=== PATIENT | male | born 1985 | race Caucasian/White ===

== ENCOUNTER 2019-07-15 15:30 | Emergency (ER) | payer SELFPAY ==
[~2019-07-15] VITALS: Ht 170.2 cm; Wt 77.1 kg
[~2019-07-15 15:30] MED LIST: ACET-2634 PO; OMEP20CA11 PO; ORPHENADRINE PO
--- NOTE | 2019-07-15 15:38 | NUR ---
Patient to ER bed 07 for evaluation. Side rails up.
[2019-07-15 15:39] VITALS: BP_SYST 136
--- NOTE | 2019-07-15 15:43 | NUR ---
LESLEY Neville at bedside examining patient.
[2019-07-15] MEDS ORDERED: KETOROLAC TROMETHAMINE 60 MG/2 ML VIAL IM ONE (15:45)
[2019-07-15] MEDS ORDERED: HYDROcodone/ACETAMIN 7.5-325 MG TAB PO ONE (15:45)
--- NOTE | 2019-07-15 15:57 | NUR ---
Report from Loki AGUIRRE
--- NOTE | 2019-07-15 15:58 | NUR ---
Jesús moore in [place] - 07/15/19 at 1607 by SDEDTD Report from Loki AGUIRRE
--- NOTE | 2019-07-15 16:00 | NUR ---
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 PATIENT TOLERATED WELL. WILL CONTINUE TO MONITOR.
--- NOTE | 2019-07-15 16:00 | NUR ---
Patient presented to ER with C/O Upper back pain. Patient A&Ox4, afebrile, ambulatory to ER, arrived to ER with , pain 07/19, denies N/V/D, bilat arm numbness, patient leaning forward to decrease pain on upperback. Patient states pain started this morning upon waking, Patient states he "works out daily" denies injury or trauma yesterday while working out, patient did not workout today. Patient denies other health history.
[2019-07-15 16:25] VITALS: BP_SYST 136
--- NOTE | 2019-07-15 16:25 | NUR ---
Patient given written and verbal discharge instructions and verbalizes understanding. ER MD discussed with patient the results and treatment provided. Patient in stable condition. ID arm band removed, kept per patient request. Rx of Sally Soma given. Patient educated on pain management and to follow up with PMD. Pain Scale 5/10, tolerable per patient, instructed to rest. Opportunity for questions provided and answered. Medication side effect fact sheet provided. Note given for days off.
== END 2019-07-15 16:25 | disposition home or self-care (01) ==
LOC: SED 15:30
DX: M54.5 Low back pain (principal); G89.29 Other chronic pain; R20.2 Paresthesia of skin; R03.0 Elevated blood-pressure reading, without diagnosis of hypertension; Z79.899 Other long term (current) drug therapy
CPT/HCPCS: 96372; 99283; J1885

== ENCOUNTER 2019-09-02 18:57 | Inpatient (IN) | payer MEDICAID ==
[~2019-09-02] VITALS: Ht 167.6 cm; Wt 76.2 kg
[2019-09-02 19:23] VITALS: BP_SYST 111
[2019-09-02 23:40] LABS: BASOPHILS # (AUTO) 0.3 K/uL (0.0-0.2); BASOPHILS % (AUTO) 2.4 % (0.0-2.0); EOSINOPHILS % (AUTO) 0.2 % (0.0-4.0); HEMATOCRIT 46.8 % (36-54); HEMOGLOBIN 16.4 g/dL (14.0-18.0); LYMPHOCYTES # (AUTO) 1.3 K/uL (1.0-5.5); LYMPHOCYTES % (AUTO) 10.3 % (20.5-51.5); MEAN CORPUSCULAR HEMOGLOBIN 33 pg (27-31); MEAN CORPUSCULAR HGB CONC 35 % (32-36); MEAN CORPUSCULAR VOLUME 93 fL (79.0-98.0); MONOCYTES # (AUTO) 1.1 K/uL (0.0-1.0); MONOCYTES % (AUTO) 8.2 % (1.7-9.3); NEUTROPHILS # (AUTO) 10.2 K/uL (1.8-7.7); NEUTROPHILS % (AUTO) 78.9 % (40.0-70.0); PLATELET COUNT (AUTO) 289 K/uL (130-430); RED BLOOD CELL COUNT(AUTO) 5.02 MIL/uL (4.2-6.2); RED CELL DISTRIBUTION WIDTH 13.4 % (9.0-15.0)
[2019-09-02 23:49] LABS: ANION GAP 8 (5-15); CALCIUM 10.3 mg/dL (8.4-11.0); CHLORIDE 97 mmol/L (98-107); CREATININE 1.42 mg/dL (0.55-1.30); GLUCOSE 94 mg/dL (70-99); POTASSIUM 3.5 mmol/L (3.5-5.1); SODIUM SERUM 140 mmol/L (136-145); UREA NITROGEN, BLOOD 28 mg/dL (8-21)
[2019-09-02 23:52] LABS: GFR AFRICAN AMERICAN 74 mL/min (>90)
[2019-09-02 23:53] LABS: INR 1.1 (0.80-1.20)
[2019-09-02 23:54] LABS: ALANINE AMINOTRANSFERASE 25 U/L (12-78); ASPARTATE AMINOTRANSFERASE 29 U/L (10-37); LIPASE 93 U/L (73-393); TOTAL BILIRUBIN 1.7 mg/dL (0.0-1.0)
[2019-09-02 23:56] LABS: ALCOHOL, BLOOD < 3 mg/dL (<10)
[2019-09-03] MEDS ORDERED: FAMOTIDINE PF 20 MG/2 ML VIAL IVP ONE (00:15)
[2019-09-03] MEDS ORDERED: ONDANSETRON HCL 4 MG/2 ML VIAL IVP ONE (00:15)
[2019-09-03] MEDS ORDERED: NACL 0.9% 1,000 ML IV ONE (00:15)
[2019-09-03 01:00] LABS: BILIRUBIN,URINE 1+ (NEGATIVE); BLOOD, URINE NEGATIVE (NEGATIVE); COLOR,URINE YELLOW (YELLOW); GLUCOSE,URINE NEGATIVE (NEGATIVE); KETONES,URINE 1+ (NEGATIVE); LEUKOCYTE ESTERASE ,URINE TRACE (NEGATIVE); NITRITE, URINE NEGATIVE (NEGATIVE); PROTEIN URINE 1+ (NEGATIVE); UROBILINOGEN,URINE 0.2 (0.2-1.0)
[2019-09-03 01:01] LABS: CLARITY/URINE SLIGHTLY HAZY (CLEAR)
[2019-09-03 01:18] LABS: BARBITURATE, URINE NEGATIVE (NEG <=200); BENZODIAZEPINE, URINE NEGATIVE (NEG <=150); COCAINE, URINE NEGATIVE (NEG <=150); METHAMPHETAMINES SCREEN,URINE POSITIVE (NEG <=500); URINE AMPHETAMINE POSITIVE (NEG <=500); URINE METHADONE NEGATIVE (NEG <=200)
[2019-09-03 01:19] LABS: CANNABINOID, URINE NEGATIVE (NEG <=50); OPIATE, URINE NEGATIVE (NEG <=100); PHENCYCLIDINE SCREEN,URINE NEGATIVE (NEG <=25); UR TRICYCLIC ANTIDEPRESSANTS NEGATIVE (NEG <=300); URINE OXYCODONE SCREEN NEGATIVE (NEG <=100); URINE PROPOXYPHENE SCREEN NEGATIVE (NEG <=300)
[2019-09-03] MEDS ORDERED: ACETAMINOPHEN 500 MG TABLET PO ONE (02:00)
[2019-09-03 02:12] LABS: BACTERIA,URINE FEW /HPF (None Seen)
[2019-09-03 02:13] LABS: HYALINE CASTS, URINE 0-10 /LPF (None Seen); RBC,URINE 0-3 /HPF (0-3)
[2019-09-03] MEDS ORDERED: LORazepam 2 MG/ML VIAL IVP ONE (02:45)
[2019-09-03] MEDS ORDERED: ASPIRIN 81 MG TAB.CHEW PO ONE (02:45)
[2019-09-03 08:56] VITALS: BP_SYST 111
[2019-09-03] MEDS ORDERED: MORPHINE 2 MG/ML INJ. SYRINGE IVP PRN ×2 (11:15)
[2019-09-03] MEDS ORDERED: LORazepam 2 MG/ML VIAL IVP PRN (11:15)
[2019-09-03] MEDS ORDERED: ACETAMINOPHEN 325 MG TABLET PO PRN (11:15)
[2019-09-03] MEDS ORDERED: ZOLPIDEM TARTRATE 5 MG TABLET PO PRN (11:15)
[2019-09-03] MEDS ORDERED: MUPIROCIN 2% TOPICAL OINTMENT 22 GM NS PRN (11:15)
[2019-09-03] MEDS ORDERED: DOCUSATE SODIUM 100 MG CAPSULE PO PRN (11:15)
[2019-09-03] MEDS ORDERED: MAGNESIUM SULFATE 50 ML IV PRN (11:15)
[2019-09-03] MEDS ORDERED: ONDANSETRON HCL 4 MG/2 ML VIAL IVP PRN (11:15)
[2019-09-03] MEDS ORDERED: POTASSIUM CHLORIDE 20 MEQ TAB.PRT.SR PO PRN (11:15)
[2019-09-03 12:00] VITALS: BP_SYST 120
[2019-09-03] MEDS: D5NS 1,000 ML IV SCH ×2 (13:52→23:57)
[2019-09-03] MEDS: cefTRIAXone 1 GM in D5W 50 ML IV SCH (13:53)
[2019-09-03] MEDS: PANTOPRAZOLE SODIUM 40 MG TAB PO SCH ×2 (13:53→21:07)
[2019-09-03 20:00] VITALS: BP_SYST 145
[2019-09-04 00:25] VITALS: BP_SYST 138
[2019-09-04 07:44] VITALS: BP_SYST 105
[2019-09-04 08:10] LABS: BASOPHILS % (AUTO) 0.8 % (0.0-2.0); EOSINOPHILS # (AUTO) 0.1 K/uL (0.0-0.4); EOSINOPHILS % (AUTO) 2.7 % (0.0-4.0); HEMATOCRIT 35.7 % (36-54); HEMOGLOBIN 12.3 g/dL (14.0-18.0); LYMPHOCYTES # (AUTO) 1.7 K/uL (1.0-5.5); LYMPHOCYTES % (AUTO) 41.1 % (20.5-51.5); MEAN CORPUSCULAR HEMOGLOBIN 33 pg (27-31); MEAN CORPUSCULAR HGB CONC 34 % (32-36); MEAN CORPUSCULAR VOLUME 95 fL (79.0-98.0); MONOCYTES # (AUTO) 0.4 K/uL (0.0-1.0); MONOCYTES % (AUTO) 9.8 % (1.7-9.3); NEUTROPHILS # (AUTO) 1.8 K/uL (1.8-7.7); NEUTROPHILS % (AUTO) 45.6 % (40.0-70.0); PLATELET COUNT (AUTO) 185 K/uL (130-430); RED BLOOD CELL COUNT(AUTO) 3.75 MIL/uL (4.2-6.2); RED CELL DISTRIBUTION WIDTH 13.1 % (9.0-15.0); WHITE BLOOD COUNT (AUTO) 4.1 K/uL (4.8-10.8)
[2019-09-04] MEDS: PANTOPRAZOLE SODIUM 40 MG TAB PO SCH ×2 (09:00→22:56)
[2019-09-04 09:23] LABS: ALBUMIN 3.2 g/dL (3.4-4.8); CALCIUM 8.2 mg/dL (8.4-11.0); CREATININE 1.07 mg/dL (0.55-1.30); THYROID STIMULATING HORMONE 1.4 uIu/mL (0.36-3.74); TOTAL BILIRUBIN 0.8 mg/dL (0.0-1.0)
[2019-09-04] MEDS: cefTRIAXone 1 GM in D5W 50 ML IV SCH (11:37)
[2019-09-04] MEDS: D5NS 1,000 ML IV SCH (11:43)
[2019-09-04] MEDS ORDERED: MEPERIDINE HCL/PF 100 MG/ML AMP ONE (13:42)
[2019-09-04] MEDS ORDERED: SIMETHICONE 40 MG/0.6 ML ML ONE (13:43)
[2019-09-04] MEDS ORDERED: DIPHENHYDRAMINE INJ 50 MG/ML VIAL ONE (13:43)
[2019-09-04] MEDS ORDERED: MIDAZOLAM HCL 5 MG/5 ML VIAL ONE (13:43)
[2019-09-04] MEDS: MIDAZOLAM HCL 5 MG/5 ML VIAL ONE ×3 (14:45→14:51)
[2019-09-04 16:02] VITALS: BP_SYST 110
[2019-09-04] MEDS ORDERED: PRO40 PO (17:22)
[2019-09-04 20:00] VITALS: BP_SYST 100
[2019-09-05] MEDS: D5NS 1,000 ML IV SCH (00:45)
[2019-09-05 01:51] VITALS: BP_SYST 107
[2019-09-05 07:43] LABS: CALCIUM 8.2 mg/dL (8.4-11.0); CREATININE 0.9 mg/dL (0.55-1.30); POTASSIUM 4.1 mmol/L (3.5-5.1)
[2019-09-05 08:00] VITALS: BP_SYST 114
[2019-09-05] MEDS: PANTOPRAZOLE SODIUM 40 MG TAB PO SCH (08:31)
[2019-09-05] MEDS: cefTRIAXone 1 GM in D5W 50 ML IV SCH (12:00)
[2019-09-05 12:12] VITALS: BP_SYST 118
[2019-09-05 12:30] VITALS: BP_SYST 116
[2019-09-06 08:06] LABS: HEPATITIS B CORE AB, TOTAL Negative (Negative); HEPATITIS B SURFACE AG Negative (Negative); HEPATITIS C VIRUS AB <0.1 s/co ratio (0.0-0.9)
== END 2019-09-05 13:00 | disposition home or self-care (01) | DRG 241 ==
LOC: SED 18:57 → STU 09-03 06:43 → SMU 09-04 12:43
PROVIDERS: ADMIT General Practice; ATTEND General Practice
PROC: 0DB68ZX Excision of Stomach, Via Natural or Artificial Opening Endoscopic, Diagnostic (ICD-10-PCS; principal; 2019-09-04 08:00)
DX: K29.01 Acute gastritis with bleeding (principal); N17.0 Acute kidney failure with tubular necrosis; K21.0 Gastro-esophageal reflux disease with esophagitis; N39.0 Urinary tract infection, site not specified; D64.9 Anemia, unspecified; E86.0 Dehydration; F15.10 Other stimulant abuse, uncomplicated; K44.9 Diaphragmatic hernia without obstruction or gangrene; Z82.49 Family history of ischemic heart disease and other diseases of the circulatory system; Z87.828 Personal history of other (healed) physical injury and trauma
CPT/HCPCS: 36415; 43239; 71045; 80048; 80053; 80061; 80307; 81000-TC; 82150-TC; 82550-TC; 83036; 83605; 83690-TC; 83735-TC; 84443-TC; 84484; 85025; 85610-TC; 85730-TC; 86308-TC; 86704; 86803; 86886; 86900; 86901; 87040-TC; 87081; 87086; 87340; 93005; 96361; 96374; 96375; 99285; G0378; G0482; J0696; J1200; J2060; J2175; J2250; J2405; J3490; J7042; J7060

== ENCOUNTER 2022-02-08 15:41 | Emergency (ER) | payer BC, MEDICAID ==
[~2022-02-08] VITALS: Ht 177.8 cm; Wt 83.9 kg
[2022-02-08 15:41] VITALS: BP_SYST 123
[~2022-02-08 15:41] MED LIST changes: -ACET-2634 PO; -OMEP20CA11 PO; -ORPHENADRINE PO; +PRO40 PO
[2022-02-08] MEDS ORDERED: HYDROcodone/ACETAMIN 10-325 MG TAB PO ONE (16:15)
[2022-02-08] MEDS ORDERED: KETOROLAC TROMETHAMINE 60 MG/2 ML VIAL IM ONE (16:15)
[2022-02-08] MEDS ORDERED: KETOROLAC TROMETHAMINE 30 MG VIAL ONE (16:17)
[2022-02-08] MEDS ORDERED: KETOROLAC TROMETHAMINE 30 MG VIAL IVP ONE (16:30)
[2022-02-08] MEDS ORDERED: MORPHINE SULFATE 10 MG/ML VIAL IM ONE (17:00)
[2022-02-08 18:22] VITALS: BP_SYST 121
== END 2022-02-08 18:23 | disposition home or self-care (01) ==
LOC: SED 15:41
DX: G89.29 Other chronic pain (principal); M54.50 Low back pain, unspecified; Z79.899 Other long term (current) drug therapy
CPT/HCPCS: 96372; 96374; 99284; J1885; J2270

== ENCOUNTER → 2024-02-24 | Emergency (ER) | payer BC, MEDICAID ==
[~2024-02-24] VITALS: Ht 170.2 cm; Wt 79.4 kg
[2024-02-24 09:45] VITALS: BP_SYST 129; PULSE 72; RESP 16; TEMP 98.1; O2SAT 99
[2024-02-27 10:03] VITALS: BP_SYST 129; PULSE 72; RESP 16; TEMP 98.1; O2SAT 99
== END | disposition left against medical advice (07) ==
LOC: SED 09:40
DX: S33.5XXA Sprain of ligaments of lumbar spine, initial encounter (principal); Z79.899 Other long term (current) drug therapy; W11.XXXA Fall on and from ladder, initial encounter; Y93.89 Activity, other specified; Y92.89 Other specified places as the place of occurrence of the external cause; Y99.8 Other external cause status
CPT/HCPCS: 72131; 99284